=== PATIENT | male | born 1960 | race Caucasian/White ===

== ENCOUNTER 2023-05-17 07:40 | Outpatient (CLI) | payer OTHER, SELFPAY | END 2023-05-17 07:41 | disposition home or self-care (01) | LOC: NFLDREF 15:56 | PROVIDERS: PCP Family Medicine; Referring Provider Family Medicine; Visit Provider Family Medicine | DX: Z13.1 Encounter for screening for diabetes mellitus (principal); Z13.220 Encounter for screening for lipoid disorders; R97.20 Elevated prostate specific antigen [PSA] | CPT/HCPCS: 80061; 82947; 84153 ==

== ENCOUNTER 2024-03-17 06:23 | Outpatient (CLI) | payer OTHER, SELFPAY ==
--- OUTSIDE RECORDS SUMMARY | 2024-03-17 06:25 | XMS_ITS | Clinical Summary ---
Author Organization [employer] [facility] Address [place], [place] [address] Care Team Providers Care Power House Control Room Operator Name Role Phone Roque Matute MD Primary Care Provider [phone] Allergies No known active allergies Medications Medication Sig Dispensed Refills Start Date End Date Status ibuprofen (ADVIL; MOTRIN) 800 mg tablet TAKE 1 TABLET BY MOUTH THREE TIMES A DAY NEEDED 0 11/14/2018 Active loratadine (CLARITIN) 10 mg tablet Take 1 tablet by mouth once daily. 0 01/01/2019 Active b complex vitamins (VITAMIN B COMPLEX) capsule Take 1 capsule by mouth once daily. 0 01/01/2019 Active Social History Tobacco Use Types Packs/Day Years Used Date Smoking Tobacco: Former Cigarettes 0.5 4 1 980 - 1983 Smokeless Tobacco: Never Tobacco Cessation:Counseling Given: Yes Alcohol Use Standard Drinks/Week Comments Yes 0 (1 standard drink = 0.6 oz pur e alcohol) Sex and Gender Information Value Date Recorded Sex Assigned at Not on file Gender Identity Not on file Sexual Orientation Not on file Obstetrics History Last Filed Vital Signs Vital Sign Reading Time Taken Comments Blood Pressure 111/76 01/01/2019 11:44 AM CDT Pulse 65 01/01/2019 11:44 AM CDT Temperature 36.6 ??C (97.9 ??F) 01/01/2019 1 1:44 AM CDT Respiratory Rate 16 01/01/2019 11:4 4 AM CDT Oxygen Saturation 100% 01/01/2019 11: 44 AM CDT Inhaled Oxygen Concentration - - Weight 82.8 kg (182 lb 9.6 oz) 01/01/2019 11:44 AM CDT Pt weighed with shoes on. Height - - Body Mass Index - - Plan of Treatment Health Maintenance Due Date Last Done Comments Tdap 02/03/1971 Depression screening for age 12+ 1972 HIV for age 15-65 02/03/1975 BMI (ht and wt on same day) for age 18+ 02/03/1978 Hepatitis C screening for ag e 18-79 02/03/1978 Tetanus booster 1980 Colonoscopy through age 75 02/03/2005 Lipids for age 45-75 02/03/2005 Zoster (shingles) series for age 50+ (1 of 2) 02/03/2010 COVID-19 vaccine series ( - 2023- season) 2024 Influenza for age 50-64 02/17/2024 Pneumococcal series for age 6-64 Aged Out No longer eligible based on patient's age to complete this topic Care Teams Power House Control Room Operator Relationship Specialty Start Date End Date Roque Matute MD [address] [place] [address] PCP - General Family Practice 01/01/19
--- NOTE | 2024-03-17 08:14 | W.ANESCHARGE ---
Anesthesia Charges Start Date/Time Anesthesia Start Date: 03/17/24 Anesthesia Start Time: 07:44 Stop Date/Time Anesthesia Stop Date: 03/17/24 Anesthesia Stop Time: 08:11
--- NOTE | 2024-03-17 11:02 | W.ANESCHARGE ---
Anesthesia Charges Start Date/Time Anesthesia Start Date: 03/17/24 Anesthesia Start Time: 07:44 Stop Date/Time Anesthesia Stop Date: 03/17/24 Anesthesia Stop Time: 08:11
== END 2024-03-17 06:24 | disposition home or self-care (01) ==
LOC: OP CLINIC 06:23
PROVIDERS: PCP Family Medicine; Visit Provider Surgery
DX: Z12.11 Encounter for screening for malignant neoplasm of colon (principal); D12.0 Benign neoplasm of cecum; K64.8 Other hemorrhoids
CPT/HCPCS: 00811; 45378; 88305; J2704

== ENCOUNTER 2024-04-02 07:51 | Outpatient (CLI) | payer OTHER, SELFPAY ==
--- OUTSIDE RECORDS SUMMARY | 2024-04-02 07:53 | XMS_ITS | Clinical Summary ---
Author Organization [employer] [facility] Address [place], [place] [address] Care Team Providers Care Plumbing Contractor Name Role Phone Roque Matute MD Primary Care Provider [phone] Allergies No known active allergies Medications Medication [...] age to complete this topic Care Teams Plumbing Contractor Relationship Specialty Start Date End Date Roque Matute MD [address] [place] [address] PCP - General Family Practice 01/01/19
--- NOTE | 2024-04-02 08:00 | CRLHL7_ITS ---
For Patients: As a result of the Century Cures Act, medical imaging exams and procedure reports are released immediately into your electronic medical record. You may view this report before your referring provider. If you have questions, please contact your health care provider. INDICATION: Chronic sinusitis. TECHNIQUE: Noncontrast CT images of the paranasal sinuses. COMPARISON: None. FINDINGS: Moderate mucosal thickening and small air-fluid levels in the maxillary sinuses. The ethmoid infundibula are opacified. Moderately severe left and mild to moderate right frontal sinus opacification. Left frontal sinus air-fluid level. Severe left and moderate right lateral recess opacification. Moderately severe opacification of the anterior and posterior ethmoid air cells. [id number] mucosal thickening in the sphenoid sinuses. The sphenoethmoid recesses are opacified. Mild rightward nasal septal deviation and 4 mm rightward directed septal spur. No nasal cavity masses. Small left and trace right mastoid effusions. IMPRESSION: 1. Moderate mucosal thickening in the maxillary sinuses. Severe left and moderate right frontal recess opacification. Moderately severe opacification of the ethmoid air cells. Air-fluid levels in the left frontal and maxillary sinuses raise the possibility of acute sinusitis. 2. Rightward nasal septal deviation and small to moderate rightward directed septal spur. Please note that all CT scans at this facility use dose modulation, iterative reconstruction, and/or weight-based dosing when appropriate to reduce radiation dose to as low as reasonably achievable. Dictated by Darell Saavedra MD @ 04/02/2024 1:07:08 PM (Electronically Signed)
== END 2024-04-02 07:52 | disposition home or self-care (01) ==
LOC: CT 07:51
PROVIDERS: PCP Family Medicine; Visit Provider Otolaryngology
DX: J32.9 Chronic sinusitis, unspecified (principal); J32.0 Chronic maxillary sinusitis; J34.2 Deviated nasal septum
CPT/HCPCS: 70486

== ENCOUNTER 2024-04-24 07:23 | Outpatient (CLI) | payer OTHER, SELFPAY ==
--- OUTSIDE RECORDS SUMMARY | 2024-04-24 14:06 | XMS_ITS | Clinical Summary ---
Author Organization [employer] [facility] Address [place], [place] [address] Care Team Providers Care Customer Professional Name Role Phone Roque Matute MD Primary Care Provider [phone] Allergies No known active allergies Medications Medication [...] age to complete this topic Care Teams Customer Professional Relationship Specialty Start Date End Date Roque Matute MD [address] [place] [address] PCP - General Family Practice 01/01/19
== END 2024-04-24 07:24 | disposition home or self-care (01) ==
LOC: NFLDREF 14:04
PROVIDERS: PCP Family Medicine; Referring Provider Family Medicine; Visit Provider Family Medicine
DX: E78.5 Hyperlipidemia, unspecified (principal); Z13.1 Encounter for screening for diabetes mellitus; Z12.5 Encounter for screening for malignant neoplasm of prostate
CPT/HCPCS: 80061; 82947; G0103

== ENCOUNTER 2024-06-30 07:06 | Outpatient (CLI) | payer BC, SELFPAY ==
--- NOTE | 2024-06-30 07:15 | MR_ITS ---
[address] [address] Phone:?[phone] Fax:?[phone] Referring Physician Information: Wong Grijalva M.D. [id number] [facility] [address] Phone:?[phone] Fax:?[phone] Patient:Donna Gonzalez D.O.B:?1960 Sex:?Male Phone:?[phone] [facility] MRN:?[id number] Exam Date:?06/30/2024 EXAM: MRI of the RIGHT KNEE, without contrast CLINICAL INFORMATION: Male, 64 years old, with right knee pain. INDICATION: Evaluate for meniscal tear. PRIOR SURGERY: None reported. PLAIN FILMS: None available. COMPARISONS: No prior MRIs available. TECHNICAL INFORMATION: Using a 1.5T MR scanner and a localizing surface coil: sagittals: PD, PDFS coronals: PD, T2FS axials: PD, PDFS SEDATION: None CONTRAST: None FINDINGS: Knee joint: Effusion: Mild-moderate right knee effusion. Popliteal cyst: None. Loose bodies: None. Subcutaneous and extra-articular soft tissues: Unremarkable. Ligaments: ACL: Intact ACL anteromedial and posterolateral bundles, without sprain or tear. PCL: Intact PCL, without acute or chronic injury. MCL: Mild thickening and periligamentous edema surrounding the proximal aspects of the superficial MCL (coronal STIR series 8 image 18 and axial T2FS series 4 image 16). LCL: Intact LCL, without injury. Posterolateral corner: No posterolateral corner soft tissue injury. Popliteus, biceps femoris, iliotibial band, popliteofibular ligament and lateral gastrocnemius are intact. Posteromedial corner: No posteromedial corner soft tissue injury. Semimembranosus, pes anserine tendons and posterior oblique ligament are without injury, tendinopathy or bursitis. Extensor mechanism: Patellar tendon: Intact, without tendinopathy. Quadriceps tendon: Mild quadriceps tendinopathy, without tear. Retinacula: Medial and lateral retinacula are intact. Fat pads: Unremarkable infrapatellar Hoffa's, quadriceps and prefemoral fat pads. Medial compartment: Medial meniscus: Diminutive appearance of the medial meniscal body, suggestive of prior partial meniscectomy. Oblique horizontal undersurface tearing of the posterior horn measures 2.0 cm (sagittal PDFS series 6 images 20-25). Meniscal extrusion measures 3 mm. No parameniscal cyst. Medial femoral condyle & tibial plateau: Broad-based grade II chondromalacia throughout the central, weightbearing aspect of the medial compartment, with minimal marginal osteophytosis. Lateral compartment: Lateral meniscus: No articular surface, meniscosynovial junction or root tear. No displacement, extrusion or parameniscal cyst. Lateral femoral condyle: No chondromalacia or osteochondral abnormality. Lateral tibial plateau: No chondromalacia or osteochondral abnormality. Patellofemoral joint: Patella: Generalized grade II/III chondromalacia of the patella, with mild marginal osteophytosis. Trochlea: Broad-based grade II/III chondromalacia of the medial facet and central sulcus, with mild marginal osteophytosis. Proximal tibiofibular joint: Unremarkable, without evidence of ligament sprain injury, joint effusion or adjacent marrow edema. Bones: No stress/occult fractures or other marrow edema/pathology. IMPRESSION: 1. Status post partial medial meniscectomy with oblique horizontal undersurface tearing of the posterior horn measuring 2.0 cm and 3 mm of meniscal extrusion. 2. Mild osteoarthritis of the patellofemoral compartment. 3. Minimal osteoarthritis of the medial compartment. 4. Grade 1 sprain of the superficial MCL. No cruciate or collateral ligament tear. 5. Mild-moderate knee joint effusion. No popliteal (Armstrong's) cyst. 6. No lateral meniscal tear or osteochondral abnormality lateral compartment. BC Electronically signed on 06/30/2024 10:12:00 AM by Manuel Tracy M.D.
== END 2024-06-30 07:07 | disposition home or self-care (01) ==
LOC: MRI 07:07
PROVIDERS: PCP Family Medicine; Visit Provider Orthopaedic Surgery
DX: M25.561 Pain in right knee (principal); S83.241A Other tear of medial meniscus, current injury, right knee, initial encounter; M17.11 Unilateral primary osteoarthritis, right knee; S83.411A Sprain of medial collateral ligament of right knee, initial encounter; M25.461 Effusion, right knee
CPT/HCPCS: 73721

== ENCOUNTER 2025-06-08 07:29 | Outpatient (CLI) | payer OTHER, SELFPAY | END 2025-06-08 07:30 | disposition home or self-care (01) | LOC: NFLDREF 06-12 12:16 | PROVIDERS: PCP Family Medicine; Referring Provider Family Medicine; Visit Provider Family Medicine | DX: E78.5 Hyperlipidemia, unspecified (principal); Z12.5 Encounter for screening for malignant neoplasm of prostate | CPT/HCPCS: 80053; 80061; G0103 ==